=== PATIENT | female | born 1960 | race Asian ===

== ENCOUNTER 2024-02-02 16:18 | Emergency (ER) | payer OTHER ==
[~2024-02-02] VITALS: Ht 149.9 cm; Wt 56.8 kg
[2024-02-02 16:51] LABS: BASOPHILS % (AUTO) 0.4 % (0.0-2.0); EOSINOPHILS % (AUTO) 1.7 % (1.0-6.0); HEMATOCRIT 41.5 % (36-46); HEMOGLOBIN 13.5 g/dL (12.0-16.0); LYMPHOCYTES # (AUTO) 2.8 K/uL (1.0-4.8); LYMPHOCYTES % (AUTO) 26.2 % (22.0-44.0); MEAN CORPUSCULAR HEMOGLOBIN 28.4 pg (26.0-34.0); MEAN CORPUSCULAR HGB CONC 32.4 G/dL (31.0-37.0); MEAN CORPUSCULAR VOLUME 88 fL (80-100); MONOCYTES # (AUTO) 0.5 K/uL (0.1-1.0); MONOCYTES % (AUTO) 4.5 % (2.0-9.0); NEUTROPHILS # (AUTO) 7.1 K/uL (1.8-7.7); NEUTROPHILS % (AUTO) 67.2 % (40.0-70.0); PLATELET COUNT (AUTO) 237 K/uL (150-450); RED BLOOD CELL COUNT(AUTO) 4.74 MIL/uL (4.00-5.20); WHITE BLOOD COUNT (AUTO) 10.5 K/uL (4.5-11.0)
[2024-02-02 16:55] LABS: ANION GAP 5 mmol/L (8-16); CALCIUM, TOTAL 9.7 mg/dL (8.8-10.5); CARBON DIOXIDE 30 mmol/L (22-29); CHLORIDE 103 mmol/L (98-107); CREATININE 0.89 mg/dL (0.60-1.30); GLOMERULAR FILTR. RATE CALC > 60 mL/min (>60); GLUCOSE,RANDOM 147 mg/dL (70-110); SODIUM SERUM 138 mmol/L (136-145); UREA NITROGEN, BLOOD 13 mg/dL (7-18)
[2024-02-02 16:56] LABS: LIPASE 31 U/L (16-77)
[2024-02-02 17:03] LABS: TROPONIN I-HIGH SENSITIVITY 4 ng/L (<51)
[2024-02-02] MEDS: ONDANSETRON HCL 4 MG/2 ML VIAL IVP ONE (17:33)
[2024-02-02] MEDS: MORPHINE SULFATE 2 MG/ML SYRINGE IVP ONE (17:50)
[2024-02-02] MEDS: SODIUM CHLORIDE 0.9% 1,000 ML IV ONE (18:22)
[2024-02-02 18:34] LABS: ALANINE AMINOTRANSFERASE 25 U/L (12-78); ALBUMIN 3.9 g/dL (3.4-5.0); ALKALINE PHOSPHATASE 110 U/L (46-116); ASPARTATE AMINOTRANSFERASE 25 U/L (15-37); BILIRUBIN,TOTAL 0.3 mg/dL (0.1-1.0)
[2024-02-02] MEDS ORDERED: SODIUM CHLORIDE 0.9% 100 ML ONE (19:52)
[2024-02-02] MEDS ORDERED: IOHEXOL 350 MG/ML 100 ML VIAL ONE (19:52)
[2024-02-02 22:52] LABS: APPEARANCE,URINE CLEAR (CLEAR); BILIRUBIN,URINE NEGATIVE (NEGATIVE); COLOR,URINE COLORLESS (YELLOW); GLUCOSE, URINE (UA) NEGATIVE (NEGATIVE); KETONES,URINE NEGATIVE (NEGATIVE); LEUKOCYTE ESTERASE ,URINE NEGATIVE (NEGATIVE); NITRATE,URINE NEGATIVE (NEGATIVE); OCCULT BLOOD,URINE NEGATIVE (NEGATIVE); PH,URINE 7.5 (5.0-8.0); PROTEIN,URINE NEGATIVE (NEGATIVE); SPECIFIC GRAVITIY, URINE 1.015 (1.003-1.030); UROBILINOGEN,URINE <=1.0 mg/dL (<=1.0)
[2024-02-03 06:12] VITALS: BP 119/63; PULSE 71; RESP 17; TEMP 97.3
== END 2024-02-03 07:24 | disposition left against medical advice (07) ==
LOC: EMS 16:18 → UNDOADMIN 02-03 06:06 → EDH 02-03 06:06 → UNDODISIN 02-03 07:24 → EDH 02-03 07:24
DX: R19.7 Diarrhea, unspecified (principal); R10.84 Generalized abdominal pain
CPT/HCPCS: 99285; 74177; 96374; 76700; 71045; 96361; 96375; 80048; 80076; 81003; 83690; 84484; 85025; 36415; 93005; J2270; J2405; Q9967; J7030; J7050; G0378